=== PATIENT | male | born 1970 | race Caucasian/White ===

== ENCOUNTER 2022-10-25 11:23 | Outpatient (REF) | payer BC, SELFPAY ==
[2022-10-25 14:17] LABS: Alanine Aminotransferase 25 U/L (0-40); Albumin Level 4.3 g/dL (3.5-5.0); Alkaline Phosphatase 64 U/L (39-117); Anion Gap 13 (12-20); Aspartate Amino Transferase 15 U/L (5-37); Blood Urea Nitrogen 14 mg/dL (9-16); Calcium 9.5 mg/dL (8.4-10.2); Carbon Dioxide 26 mmol/L (22-29); Chloride 105 mmol/L (96-108); Estimated Glomerular Filt Rate > 60; Glucose Random 91 mg/dL (60-115); Iron 172 mcg/dL (45-160); Percent Iron Saturation 57 % (15-50); Potassium 4.5 mmol/L (3.3-5.1); Sodium 139 mmol/L (135-145); Total Iron Binding Capacity 302 mcg/dL (228-428); Total Protein 6.8 g/dL (6.5-8.0); Unsaturated Iron Binding 130 ug/dL
[2022-10-25 14:48] LABS: Ferritin 296 ng/mL (20-250); Folate 14.3 ng/mL (> or = 4.0); Free T4 (Free Thyroxine) 0.97 ng/dL (0.71-1.85); Thyroid Stimulating Hormone 1.51 uIU/mL (0.32-4.0); Vitamin B12 377 pg/mL (200-900)
[2022-10-27 04:50] LABS: Syphilis Screen Nonreactive (Nonreactive)
== END 2022-10-25 11:24 | disposition home or self-care (01) ==
LOC: HO.MANLDS 11:23
PROVIDERS: Visit Provider Physician Assistant
DX: R20.2 Paresthesia of skin (principal); R68.89 Other general symptoms and signs; R20.9 Unspecified disturbances of skin sensation
CPT/HCPCS: 36415; 80053; 82306; 82607; 82728; 82746; 83540; 84439; 84443; 86780

== ENCOUNTER 2022-10-27 14:19 | Outpatient (REF) | payer BC, SELFPAY ==
[2022-10-27 20:03] LABS: Folate 17.7 ng/mL (> or = 4.0); Vitamin B12 450 pg/mL (200-900); Vitamin D 25-OH Total 16.1 ng/mL (>30)
== END 2022-10-27 14:20 | disposition home or self-care (01) ==
LOC: HO.MANLDS 14:19
PROVIDERS: Visit Provider Internal Medicine
DX: R20.2 Paresthesia of skin (principal); E55.9 Vitamin D deficiency, unspecified
CPT/HCPCS: 36415; 82306; 82607; 82746